=== PATIENT | female | born 1940 | race Caucasian/White ===

== ENCOUNTER 2016-06-01 08:55 | Emergency (ER) | payer MEDICARE, BC ==
[2016-06-01 09:09] VITALS: TEMP 97.8
--- NOTE | 2016-06-01 09:55 | RAD ---
EXAM DESCRIPTION: XR HIP 2 OR MORE VIEWSXR HIP 2 OR MORE VIEWS CLINICAL HISTORY: 75 y/o ,F, fall with left hip pain and head lac COMPARISON: None. IMPRESSION: ORIF of left femoral neck fracture. Osteolysis surrounding the lateral most aspect of the femoral neck compression screw. No evidence of left hip fracture on today's study. No osseous lesion noted. Electronically signed by: Kailash Sanabria MD 06/01/2016 09:54
--- NOTE | 2016-06-01 09:56 | RAD ---
EXAM DESCRIPTION: XR PELVIS 1-2 VIEWS CLINICAL HISTORY: 75 y/o ,F, fall with left hip pain and head lac COMPARISON: None. IMPRESSION: There is irregularity 2 bilateral inferior pubic rami and left pubic ramus. This may be due to old fracture. Acute fracture cannot be excluded. CT of pelvis is suggested. Left ORIF of an old femoral neck fracture. Electronically signed by: Kailash Sanabria MD 06/01/2016 09:54
[2016-06-01] MEDS ORDERED: KETOROLAC TROMETHAMINE INJ 30 MG/ML VIAL IV ONE (09:57)
[2016-06-01] MEDS ORDERED: MORPHINE SULFATE INJ 10 MG/ML VIAL IV ONE ×2 (09:57→16:07)
--- NOTE | 2016-06-01 09:59 | CT ---
EXAM DESCRIPTION: CT CERVICAL SPINE WITHOUT IV CONTRAST CLINICAL HISTORY: 75 y/o F, fall with left hip pain and head lac COMPARISON: None TECHNIQUE: Volumetric noncontrast CT of cervical spine was performed. FINDINGS: Patient is status post C4 through C6 anterior fusion with corpectomy of C5. No hardware failure. Scattered degenerative change noted. No evidence of alignment abnormality. No evidence of fracture. Paragraph craniocervical and the atlantoaxial junctions are unremarkable. IMPRESSION: No evidence of traumatic injury to the cervical spine on today's CT. Electronically signed by: Kailash Sanabria MD 06/01/2016 09:57
--- NOTE | 2016-06-01 10:01 | CT ---
EXAM DESCRIPTION: CT HEAD WITHOUT IV CONTRAST CLINICAL HISTORY: fall with left hip pain and head lac COMPARISON: None available TECHNIQUE: Non contrast cranial CT was performed. FINDINGS: There is a large contusion overlying the left posterior vertex. The calvarium is intact. Extensive white matter disease noted. The ventricles are midline and unremarkable. Mild involutional changes seen within the cerebrum. No abnormal extra-axial fluid. No intracranial hemorrhage. Basilar cisterns are widely patent. Atherosclerotic disease seen within the internal carotid arteries. IMPRESSION: There is a large hematoma noted along the posterior left vertex of skull. No evidence of underlying skull fracture. No acute intracranial findings on today's study. Electronically signed by: Kailash Sanabria MD 06/01/2016 09:59
--- NOTE | 2016-06-01 10:42 | CT ---
EXAM DESCRIPTION: CT PELVIS WITHOUT IV CONTRAST CLINICAL HISTORY: pelvic fxr COMPARISON: None. TECHNIQUE: Transaxial images were obtained without intravenous or oral contrast media. Sagittal and coronal reconstruction was performed. FINDINGS: There is evidence of prior L4 vertebral body augmentation. A right lumbar scoliosis is demonstrated. No free fluid is observed. No inguinal region abnormality is detected. A left sided gamma nail is observed in the left hip. Fracturing of the left inferior pubic ramus is observed. There is also fracturing of the left superior pubic ramus near the acetabulum. There is avulsion of the anterior acetabular margin. IMPRESSION: 1. Fracturing of the left superior and inferior pubic rami are observed. There is also an avulsive injury of the anterior margin of the left acetabulum 2. Previously placed left-sided gamma nail is observed. Electronically signed by: Aditya Hsieh MD 06/01/2016 10:40
--- NOTE | 2016-06-01 13:22 | ED.PDOC ---
History of Present Illness - General Chief Complaint: Trauma Stated Complaint: fall, l hip pain, contusion/laceration to head Time Seen by Provider: 06/01/16 09:01 Source: patient Exam Limitations: no limitations - History of Present Illness Initial Comments: The patient is a 75-year-old female presenting to the emergency room after having tripped backwards going up some steps. She fell and sustained a laceration to her posterior left scalp with a significant hematoma visible. It is hemostatic at the time of her arrival. She does not think she passed out. She did not get dizzy. She does have a mild headache now. Her main complaint is left hip pain. Her hip hurts with any movement. No back pain. No neck pain. No chest pain. She has fractured her pelvis in the past and she has broken her femur in the past requiring surgical repair. No other injuries. Timing/Duration: momentarily Severity: moderate Improving Factors: immobilization Worsening Factors: movement Associated Symptoms: headaches Allergies/Adverse Reactions: Allergies Penicillins Allergy (Verified 06/01/16 09:06) Home Medications: Ambulatory Orders Aspirin [Aspirin EC] 81 mg PO DAILY 06/01/16 Metoprolol Succinate [Toprol XL] 50 mg PO DAILY 06/01/16 Review of Systems - Review of Systems Constitutional: States: malaise EENTM: States: no symptoms reported Respiratory: States: no symptoms reported Cardiology: States: no symptoms reported Gastrointestinal/Abdominal: States: no symptoms reported Genitourinary: States: no symptoms reported Musculoskeletal: States: see HPI Skin: States: see HPI Neurological: States: headache Endocrine: States: no symptoms reported All other Systems: No Change from Baseline Past Medical History (General) - Patient Medical History Hx Stroke: No Hx Cardiac Disorders: Yes - SVT Hx Congestive Heart Failure: No Hx Diabetes: No Hx Cancer: Yes - breast - Vaccination History Hx Influenza Vaccination: Yes - 2016 Hx Pneumococcal Vaccination: Yes - 2016 - Social History Hx Tobacco Use: No - Female History Patient is a Female of Child Bearing Age (10 -59 yrs old): No Family Medical History - Family History Mother Living Status: Hx Family Stroke: Yes Physical Exam - Physical Exam General Appearance: Alert, Comfortable, No apparent distress Eye Exam: bilateral normal Ears, Nose, Throat: normal ENT inspection, normal pharynx, other - posterior left scalp hematoma is hemostatic. Small 4 mm laceration at centers hemostatic. Neck: non-tender, full range of motion, supple Respiratory: chest non-tender, lungs clear, normal breath sounds, no respiratory distress, no accessory muscle use Cardiovascular/Chest: normal peripheral pulses, regular rate, rhythm, no edema Peripheral Pulses: radial,right: 2+, radial,left: 2+, dorsalis pedis,right: 2+, dorsalis pedis,left: 2+, posterior tibialis,right: 2+, posterior tibialis,left: 2+ Gastrointestinal/Abdominal: non tender, soft Rectal Exam: deferred Back Exam: normal inspection Extremity: other - the patient has pain and limited range of range of motion due to pain at the left hip. She appears to be neurovascularly preserved. She moves the knee the ankle and foot well. Neurologic: no motor/sensory deficits, alert, normal mood/affect, oriented x 3 Skin Exam: normal color - with the exception of a small laceration to the posterior scalp Comments: Vital Signs - 24 hr 06/01/16 06/01/16 06/01/16 09:00 09:15 10:34 Temperature 97.8 F 97.8 F Pulse Rate [ 68 73 Left Radial] Respiratory 20 20 Rate Blood Pressure 182/84 157/78 [Left Arm] O2 Sat by Pulse 95 100 Oximetry Progress - Progress Progress: 06/01/16 13:25 the patient is a 75-year-old female presenting with a scalp hematoma as well as a left sided pelvic fracture including inferior and superior pubic rami as well as an anterior rim acetabular fracture on the same side. after discussing the patient with her orthopedist group, it appears that she is highly unlikely to require surgical intervention for these fractures. For now she needs admission for pain control due to her uncontrolled pain. She will also need assistance with performing her ADLs currently. She is likely to need a longer term rehabilitation program once her pain is managed. Her orthopedist , Dr. Tate, would like to see the patient in a couple of weeks. - Results/Orders Results/Orders: 06/01/16 12:51 Catheter:Suarez QSHIFT Laboratory Results - last 24 hr 06/01/16 09:20 WBC 6.7 RBC 4.20 Hgb 13.5 Hct 39.4 MCV 94.0 MCH 32.2 H MCHC 34.3 RDW 12.8 Plt Count 152 MPV 9.0 Absolute Neuts (auto) 4.60 Absolute Lymphs (auto) 1.50 Absolute Monos (auto) 0.50 Absolute Eos (auto) 0.00 Absolute Basos (auto) 0.00 Neutrophils % 69.3 Lymphocytes % 22.7 Monocytes % 7.2 Eosinophils % 0.2 L Basophils % 0.6 PT 10.7 INR 0.940 PTT (SP) 33.8 Sodium 139 Potassium 3.9 Chloride 103 Carbon Dioxide 28 Anion Gap 11.9 L BUN 13 Creatinine 0.57 L BUN/Creatinine Ratio 22.8 H Random Glucose 116 H Serum Osmolality 278.6 Calcium 10.0 Total Bilirubin 0.9 AST 29 ALT 24 Alkaline Phosphatase 85 Serum Total Protein 7.7 Albumin 4.3 Globulin 3.4 Albumin/Globulin Ratio 1.3 CT scan of the head shows a scalp hematoma. No intracranial bleed. The changes otherwise. CT scan of the cervical spine shows no acute trauma. X-ray of the left femur appears grossly normal for a postoperative state. X-ray of the pelvis shows fractures of the left superior and inferior pubic rami as well as the superior pubic rami on the right. Difficult to tell the age of these fractures. Recommend CT scan. CT scan of the pelvis shows newly fractured left inferior superior pubic rami. There is also a small fracture of the anterior rim of the left acetabulum. Departure - Departure Clinical Impression: Hematoma of scalp Qualifiers: Encounter type: initial encounter Qualifier Code: (S00.03XA) Contusion of scalp , initial encounter Fall against object Qualifiers: Encounter type: initial encounter Qualifier Code: (W18.09XA) Striking against other object with subsequent fall, initial encounter Closed pelvic fracture Qualifiers: Encounter type: initial encounter Pelvic bone location: multiple parts Fracture alignment: with stable disruption of pelvic ring Qualifier Code: ( S32.810A) Multiple fractures of pelvis with stable disruption of pelvic ring, initial encounter for closed fracture Disposition: Transfer to Hospital Home Medications: Ambulatory Orders Aspirin [Aspirin EC] 81 mg PO DAILY 06/01/16 Metoprolol Succinate [Toprol XL] 50 mg PO DAILY 06/01/16 Transfer to Outside Facility - Transfer Information Accepting Provider:: dr green Accepting Facility: [facility]
[2016-06-01 16:34] VITALS: BP 136/74; O2SAT 95
== END 2016-06-01 16:34 | disposition short-term general hospital (02) ==
LOC: ER 08:55
DX: S00.03XA Contusion of scalp, initial encounter (principal); Z88.0 Allergy status to penicillin; Z79.82 Long term (current) use of aspirin; I47.1 Supraventricular tachycardia; Z85.3 Personal history of malignant neoplasm of breast; Z79.899 Other long term (current) drug therapy; S32.810A Multiple fractures of pelvis with stable disruption of pelvic ring, initial encounter for closed fracture; W10.9XXA Fall (on) (from) unspecified stairs and steps, initial encounter
CPT/HCPCS: 36415; 70450; 72125; 72170; 72192; 73502; 80053; 85025; 85610; 85730; J1885; J2270